=== PATIENT | female | born 1945 | race Two or more races ===

== ENCOUNTER → 2017-08-30 | Outpatient (CLI) | payer OTHER | END | disposition home or self-care (01) | LOC: RAD 501 09:45 | DX: M51.36 Other intervertebral disc degeneration, lumbar region (principal); Z98.1 Arthrodesis status ==

== ENCOUNTER 2022-02-17 12:00 | Inpatient (IN) | payer OTHER ==
[~2022-02-17] VITALS: Ht 157.5 cm; Wt 54.4 kg
[2022-02-23] MEDS ORDERED: COLACE100 MG PO (10:19)
[2022-02-23] MEDS ORDERED: MEDROLPACK PO (10:20)
[2022-02-23] MEDS ORDERED: AMOX-CLAV 875-1 EACH PO (10:20)
[2022-02-23] MEDS ORDERED: PERCOCET 5-3251 EACH PO (10:20)
[2022-02-23] MEDS ORDERED: NEURONTIN800 MG PO (10:20)
== END 2022-02-25 10:12 | disposition home or self-care (01) | DRG 455 ==
LOC: PED 02-23 06:48 → O/R 02-23 06:48 → SURH 02-23 12:00 → PED 02-23 15:28
PROVIDERS: ADMIT Orthopaedic Surgery Orthopaedic Surgery of the Spine; ATTEND Orthopaedic Surgery Orthopaedic Surgery of the Spine
PROC: 0SG1071 Fusion of 2 or more Lumbar Vertebral Joints with Autologous Tissue Substitute, Posterior Approach, Posterior Column, Open Approach (ICD-10-PCS; 2022-02-23)
PROC: 0QP005Z Removal of External Fixation Device from Lumbar Vertebra, Open Approach (ICD-10-PCS; 2022-02-23)
PROC: XRGC0R7 Fusion of 2 or more Lumbar Vertebral Joints using Custom-Made Anatomically Designed Interbody Fusion Device, Open Approach, New Technology Group 7 (ICD-10-PCS; principal; 2022-02-23 14:30)
DX: M48.062 Spinal stenosis, lumbar region with neurogenic claudication (principal); M41.56 Other secondary scoliosis, lumbar region; M48.26 Kissing spine, lumbar region; M51.36 Other intervertebral disc degeneration, lumbar region; E11.9 Type 2 diabetes mellitus without complications; Z79.4 Long term (current) use of insulin

== ENCOUNTER 2023-01-19 09:21 | Inpatient (IN) | payer OTHER ==
[~2023-01-19] VITALS: Ht 157.5 cm; Wt 54.4 kg
[~2023-01-19 09:21] MED LIST: AMOX-CLAV 875-1 EACH PO; COLACE100 MG PO; MEDROLPACK PO; NEURONTIN800 MG PO; PERCOCET 5-3251 EACH PO
[2023-01-20] MEDS ORDERED: JANUV PO (09:55)
[2023-01-20] MEDS ORDERED: HUMALOG100 UNIT/1 (09:56)
[2023-01-25] MEDS ORDERED: ACETAMINOPHEN-1 EAC2 PO (10:53)
[2023-01-25] MEDS ORDERED: AMOX-CLAV 875-1 EACH PO (10:54)
[2023-01-25] MEDS ORDERED: COLACE100 MG PO (10:54)
[2023-01-25] MEDS ORDERED: MEDROLPACK PO (10:54)
[2023-01-25] MEDS ORDERED: NEURONTIN800 MG PO (10:55)
[2023-01-25] MEDS ORDERED: ZOFRAN8 MG PO (10:56)
== END 2023-01-26 11:26 | disposition home or self-care (01) | DRG 520 ==
LOC: O/R 01-25 06:26 → PED 01-25 06:26 → SURH 01-25 08:30 → PED 01-25 16:46
PROVIDERS: ADMIT Orthopaedic Surgery Orthopaedic Surgery of the Spine; ATTEND Orthopaedic Surgery Orthopaedic Surgery of the Spine
PROC: 0QP004Z Removal of Internal Fixation Device from Lumbar Vertebra, Open Approach (ICD-10-PCS; 2023-01-25)
PROC: 01NB0ZZ Release Lumbar Nerve, Open Approach (ICD-10-PCS; 2023-01-25)
PROC: 07DR0ZZ Extraction of Iliac Bone Marrow, Open Approach (ICD-10-PCS; 2023-01-25)
PROC: 00NY0ZZ Release Lumbar Spinal Cord, Open Approach (ICD-10-PCS; principal; 2023-01-25 14:30)
DX: M54.16 Radiculopathy, lumbar region (principal); M48.062 Spinal stenosis, lumbar region with neurogenic claudication; E11.9 Type 2 diabetes mellitus without complications; Z79.4 Long term (current) use of insulin